=== PATIENT | male | born 1995 | race Caucasian/White ===

== ENCOUNTER 2022-05-17 12:23 | Outpatient (REF) | payer BC, SELFPAY ==
[2022-05-19 11:54] LABS: Acrosom Defect 21.5 %; Appearance Normal; Container Type 50 mL Conical; Midpiece Defect 13.5 %; Motile/Ejaculate 80.5 x10(6) (>=9.0); Motile/mL 24.4 x10(6) (>=6.0); Motility 60 % (>=40); Semen Volume 3.3 mL (>=1.5); Sperm/mL 40.7 x10(6) (>=15.0); Strict Morph NL 6.5 % (>=4.0); Study Type Semen; Tail Defect 39.5 %
== END 2022-05-17 12:24 | disposition home or self-care (01) ==
LOC: LBN 12:23
PROVIDERS: PCP Nurse Practitioner Family; Visit Provider Nurse Practitioner Family
DX: N46.8 Other male infertility (principal)
CPT/HCPCS: 89240; 89310

== ENCOUNTER 2023-07-04 18:07 | Outpatient (CLI) | payer BC, SELFPAY | END 2023-07-04 18:08 | disposition home or self-care (01) | LOC: LBO 18:08 | PROVIDERS: PCP Nurse Practitioner Family; Visit Provider Advanced Practice Midwife | DX: Z67.91 Unspecified blood type, Rh negative (principal) | CPT/HCPCS: 36415; 86900; 86901 ==

== ENCOUNTER 2023-08-30 00:58 | Outpatient (CLI) | payer BC, SELFPAY ==
[2023-08-30 12:11] LABS: Hemoglobin A1C 4.8 % (<5.7)
[2023-08-30 12:38] LABS: Calculated LDL 130 mg/dL (<100); Cholesterol 209 mg/dL (<200); HDL Cholesterol 68 mg/dL (40-60); Triglyceride 55 mg/dL (<150)
== END 2023-08-30 00:59 | disposition home or self-care (01) ==
LOC: LBO 00:58
PROVIDERS: PCP Nurse Practitioner Family; Visit Provider Nurse Practitioner Family
DX: Z13.220 Encounter for screening for lipoid disorders (principal); Z13.1 Encounter for screening for diabetes mellitus
CPT/HCPCS: 36415; 80061; 83036